=== PATIENT | female | born 1975 | race Caucasian/White ===

== ENCOUNTER 2016-11-17 10:34 | Day surgery (SDC) | payer MEDICAID ==
[~2016-11-17] VITALS: Ht 160 cm; Wt 88.5 kg
[2016-11-17 11:12] VITALS: BP 128/75
[2016-11-17 17:31] VITALS: BP 148/95
== END 2016-11-17 17:50 | disposition home or self-care (01) ==
LOC: DS 10:34
PROVIDERS: Surgery
PROC: 0FT44ZZ Resection of Gallbladder, Percutaneous Endoscopic Approach (ICD-10-PCS; principal; 2016-11-17 12:30)
DX: K80.10 Calculus of gallbladder with chronic cholecystitis without obstruction (principal); E66.9 Obesity, unspecified; Z68.34 Body mass index [BMI] 34.0-34.9, adult
CPT/HCPCS: J0330; J0690; J1170; J2250; J2405; J2704; J2710; J3010; J3490; J7030; J7120